=== PATIENT | male | born 1945 | race Caucasian/White ===

== ENCOUNTER 2019-03-12 17:11 | Inpatient (IN) ==
[2019-03-12] MEDS ORDERED: NON-FORMULARY MEDICATION 1 EACH EACH (Promethazine/Dextromethorphan [Promethazine-Dm Syrup PO PRN (17:41)
[2019-03-12] MEDS ORDERED: Nitroglycerin 0.4 MG TAB.SUBL SL PRN (17:41)
[2019-03-12] MEDS ORDERED: Baclofen 10 MG TABLET PO PRN (17:41)
[2019-03-12] MEDS: Gabapentin 100 MG CAPSULE PO SCH (19:06)
[2019-03-12] MEDS: Ascorbic Acid 500 MG TABLET PO SCH (19:06)
[2019-03-12] MEDS: Lactulose Oral Soln 20 GM/30 ML UDC PO SCH (20:51)
[2019-03-12] MEDS: Apixaban 5 MG TABLET PO SCH (20:52)
[2019-03-12] MEDS: ALPRAZolam 0.5 MG TABLET PO SCH (20:53)
[2019-03-12] MEDS: *HR* GlipiZIDE 5 MG TABLET PO SCH (20:53)
[2019-03-12] MEDS ORDERED: Insulin DETEMIR 100 UNIT/ML per UNIT SQ ONE (21:00)
[2019-03-13 05:51] LABS: Basophils % 0.1 %; Eosinophils % 0.6 %; Hematocrit 37.1 % (37.5-50.1); Hemoglobin 12.8 g/dL (12.9-16.9); Immature Granulocytes % 0.4 % (0-4); Lymphocytes # 1.3 K/mcL (0.6-4.6); Lymphocytes % 18.3 %; Mean Corpuscular HGB Conc 34.5 g/dL (31.6-35.5); Mean Corpuscular Hemoglobin 32.8 pg (28.0-33.3); Mean Corpuscular Volume 95.1 fL (83.0-100.0); Mean Platelet Volume 10.5 fL (9.4-12.4); Monocytes # 0.4 K/mcL (0.0-1.3); Neutrophils # 5.4 K/mcL (1.6-8.9); Platelet Count 174 K/mcL (140-400); Red Cell Distribution Width 14.5 % (11.5-14.5); Segmented Neutrophils % 74.6 %
[2019-03-13 06:08] LABS: BUN/Creatinine Ratio 24 (6-26); Blood Urea Nitrogen 24 mg/dL (8-23); Calcium 9.3 mg/dL (8.6-10.3); Carbon Dioxide 25 mEq/L (23-29); Chloride 105 mEq/L (98-107); Glucose 149 mg/dL (70-105); Osmolality,Calculated 293 (280-300); Potassium 3.7 mEq/L (3.5-5.1); Sodium 138 mEq/L (136-145); eGFR For Non-African Americans > 60 (> 60)
[2019-03-13] MEDS: Ascorbic Acid 500 MG TABLET PO SCH ×2 (06:21→17:29)
[2019-03-13] MEDS ORDERED: NON-FORMULARY MEDICATION 1 EACH EACH (Omega-3/Dha/Epa/Fish Oil [Fish Oil 1,000 Mg Softgel] PO SCH (09:00)
[2019-03-13] MEDS: Apixaban 5 MG TABLET PO SCH ×2 (11:21→19:48)
[2019-03-13] MEDS: Multivit/Ca/Min/Fe/FA 1 TAB TABLET PO SCH (11:24)
[2019-03-13] MEDS: Isosorbide MONOnitrate (24 HR) 60 MG TAB.ER.24H PO SCH (11:25)
[2019-03-13] MEDS: *HR* GlipiZIDE 5 MG TABLET PO SCH ×2 (11:25→19:48)
[2019-03-13] MEDS: Metoprolol XL (24 HR) Succ 50 MG TAB.ER.24H PO SCH (11:25)
[2019-03-13] MEDS: Furosemide 40 MG TABLET PO SCH (11:26)
[2019-03-13] MEDS: Loratadine 10 MG TABLET PO SCH (11:26)
[2019-03-13] MEDS: Lactulose Oral Soln 20 GM/30 ML UDC PO SCH ×3 (11:32→19:46)
[2019-03-13] MEDS: Insulin DETEMIR 100 UNIT/ML X5UNITS SQ SCH ×2 (12:21→19:51)
[2019-03-13] MEDS: Gabapentin 100 MG CAPSULE PO SCH (17:29)
--- NOTE | 2019-03-13 18:39 | Internal Med History&Physical ---
Date of Encounter: 03/13/19 Time of Encounter: 18:10 Assessment and Plan (1) CVA (cerebral vascular accident) Current visit: No Status: Acute Left basal ganglia CVA. Continue Eliquis and Plavix. PT and OT evaluations with ongoing intervention will be done. Qualifiers: CVA mechanism: thrombosis Precerebral and cerebral artery: middle cerebral artery Laterality of affected vessel: left Qualified Code(s): I63.312 - Cerebral infarction due to thrombosis of left middle cerebral artery (2) Atrial fibrillation Current visit: No Status: Chronic Continue Eliquis. Qualifiers: Atrial fibrillation type: chronic Qualified Code(s): I48.2 - Chronic atrial fibrillation (3) Generalized weakness Current visit: No Status: Acute PT and OT evaluation will be done. (4) CHF (congestive heart failure) Current visit: No Status: Chronic Continue Lasix, Imdur, Toprol, and lisinopril. Qualifiers: Heart failure type: systolic Heart failure chronicity: chronic Qualified Code(s): I50.22 - Chronic systolic (congestive) heart failure (5) Elevated LFTs Current visit: No Status: Acute LFTs elevated on all labs since December 2015. Hepatitis profile negative December 2018. (6) Hypothyroidism Current visit: No Status: Chronic TSH was normal at 0.873 on 01/31/2019. Continue present dose Synthroid. Qualifiers: Hypothyroidism type: acquired Qualified Code(s): E03.9 - Hypothyroidism, unspecified (7) Hypokalemia Current visit: No Status: Acute Likely secondary to Lasix use. Continue supplemental potassium. (8) CAD (coronary artery disease) Current visit: No Status: Chronic Status post CABG. Continue Plavix, Imdur, Toprol, and Eliquis. Qualifiers: Coronary Disease-Associated Artery/Lesion type: bypass graft [place] vs. transplanted heart: [place] heart Associated angina: without angina Qualified Code(s): I25.810 - Atherosclerosis of coronary artery bypass graft(s) without angina pectoris (9) Type 2 diabetes mellitus Current visit: No Status: Chronic Hemoglobin A1c was 8.0% on 03/10/2019. Continue glipizide and Accu-Cheks with SSI. Qualifiers: Diabetes mellitus lobsterman insulin use: with assisted use Diabetes mellitus complication status: without complication Qualified Code(s): E11.9 - Type 2 diabetes mellitus without complications; Z79.4 - medical terminologist (current) use of insulin (10) Anemia Current visit: No Status: Chronic Anemia testing 01/31/2019 showed iron 69, transferrin saturation 21%, transferrin 232, ferritin 208, B12 > 1500, and folate 20.5. Qualifiers: Anemia type: unspecified type Qualified Code(s): D64.9 - Anemia, unspecified Internal Medicine - H&P: HPI Chief complaint: CVA Admitted From: Hospital to Hospital Transfer Plans for Post Hospital Care: Home History of present illness: Mr. Willett is a 73 year old male was hospitalized at [facility] March 09- after presenting with stroke symptoms. Brain MRI showed small acute infarcts in the posterior limb of the left internal capsule. Aspirin was discontinued and he started Plavix. Eliquis dose was adjusted to 2.5 mg twice a day from his previous dose of 5 mg every morning. He was discharged to [facility] swing bed for ongoing rehabilitation therapy. He reports a previous stroke occurred approximately 5 months earlier without permanent neurologic deficit. He denies seizures. Past Med Surg Social Fam HX - Past Medical History Medical history: aortic aneurysm, arthritis, atrial fibrillation, cardiomy opathy, CHF, coronary artery disease, DVT, diabetes, GERD, hyperlipidemia, hypertension, myocardial infarction, peripheral artery disease, thyroid disease, other Additional medical history: SLEEP APNEA, ANXIETY, HYPOTHRYROID,RESTLESS LEG, PVD Psychiatric history: anxiety, depression - Past Surgical History Surgical History: angioplasty/stent, appendectomy, cholecystectomy, coronary bypass (CABG), LE Bypass, LE stent(s), LE vascular intervention, other Additional surgical history: heart stent x 3, holter monitor. - Social History Smoking Status: Former smoker Smokeless Tobacco Status: No Alcohol use: none Drug use: none - Family History Mother Living Status: Hx Family Cardiac Disorders: No Hx Family Respiratory Disorders: No Hx Family Cancer: No Father Living Status: Hx Family Cardiac Disorders: Yes Hx Family Cancer: No Hx Family GI Disorders: No Hx Family Endocrine Disorder: Yes Internal Medicine - H&P: Meds Ascorbate Calcium [Vitamin C] 500 mg PO BID #0 01/10/16 [History] Docusate [Colace] 100 mg PO DAILY PRN #0 01/10/16 [History] Doxepin HCl 100 mg PO HS #0 01/10/16 [History] Multivit-Min/FA/Lycopen/Lutein [Adults 50+ Multivitamin Tablet] 1 tab PO DAILY #0 01/10/16 [History] Potassium Chloride [K-Tab ER] 10 meq PO DAILY #0 01/10/16 [History] Nitroglycerin [Nitrostat] 0.4 mg SL Q5M PRN 05/16/16 [History] Apixaban [Eliquis] 2.5 mg PO BID #90 tablet 05/19/16 [Rx] Loratadine [Allergy Relief] 10 mg PO DAILY 08/03/17 [History] [place]-3/Dha/Epa/Fish Oil [Fish Oil 1,000 mg Softgel] 1,000 mg PO DAILY 08/03/17 [History] Ferrous Sulfate [Iron] 325 mg PO BID 02/06/18 [History] Levothyroxine Sodium 150 mcg PO QAM 10/19/18 [History] Rosuvastatin Calcium [Crestor] 20 mg PO QPM 10/19/18 [History] Baclofen [Lioresal] 10 mg PO TID PRN 01/15/19 [History] Metoprolol Succinate [Toprol Xl] 50 mg PO DAILY 01/15/19 [History] Pantoprazole Sodium 40 mg PO BID 01/15/19 [History] Isosorbide MONOnitrate [Isosorbide Mononitrate ER] 120 mg PO DAILY 02/02/19 [History] Lactulose 15 ml PO TID 02/02/19 [History] glipiZIDE [Glipizide] 5 mg PO BID #0 02/07/19 [Rx] Furosemide [Lasix] 40 mg PO DAILY 03/09/19 [History] Gabapentin [Neurontin] 100 mg PO DAILY@18 03/09/19 [History] Insulin Glargine [Lantus] 25 unit SQ HS 03/09/19 [History] Insulin Glargine [Lantus] 66 unit SQ QAM 03/09/19 [History] Promethazine/Dextromethorphan [Promethazine-Dm Syrup] 10 ml PO Q6H PRN 03/09/19 [History] ALPRAZolam [Xanax 0.5 MG Tablet] 1 mg PO HS 3 Days #3 tablet 03/12/19 [Rx] Clopidogrel [Plavix] 75 mg PO DAILY #30 tablet 03/12/19 [Rx] Ramipril [Altace] 5 mg PO DAILY #1 capsule 03/12/19 [Rx] Allergy/AdvReac Type Severity Reaction Status Date / Time tamsulosin Allergy Rash Verified 12/06/18 14:24 Penicillins AdvReac Mild Anaphylaxis Verified 12/06/18 14:24 All Systems PM: A 10-system review of systems was performed and is negative for pertinent findings except as documented above in the HPI. Review of systems: Gen.: He states his weight has decreased 10-15 pounds in the past year. Cardiovascular: He has history of hypertension. He reports atrial fibrillation has been present since approximately 2010. He has a diagnosis of heart failure. Echocardiogram 03/10/2019 showed LVEF of 30-35%. The interventricular septum and posterior wall thickness measurements were 1.34 and 1.22 cm respectively. There was LAE at 4.80 cm. Diastolic function assessment was limited because of underlying atrial fibrillation. A previous echocardiogram 01/14/2019 showed LVEF of 40-45% with mild tricuspid regurgitation and mild to moderate mitral regurgitation. He has known ASHD status post [place] 3 and 5 (? 3) vessel CABG 2009. Heart catheter 12/22/2016 showed LMCA free of disease, 100% stenosis in the proximal LAD, 50% stenosis in the mid circumflex, 100% stenosis of the proximal RCA and patent SVG to right PDA and DOS SANTOS to mid LAD. SVG to ramus was previously known to be occluded. He reports he has had [place] on Regadenoson EST 10/19/2018 showed LVEF 34% with perfusion imaging negative for ischemia and EKG nondiagnostic for scheming due to baseline ST/T changes. He reports a DVT approximately 2014. He has history of PAD status post leg arterial bypass. Respiratory: He smoked from age 17 until quitting approximately 5 months ago. He smoked 2 packs per day. He denies known chronic lung disease. He has TOMI and uses CPAP at bedtime. GI: He has history of cirrhosis likely secondary to alcohol abuse. He reports his last drink was November 2018. He has had cholecystectomy. He denies disorders of his exocrine pancreas : He has BPH but denies other kidney bladder prostate disorders Neurologic: As per history of present illness Endocrine: He was diagnosed with DM 2 approximately 2014. He has hypothyroidism and hyperlipidemia. Hematology/oncology: He has anemia but denies internal malignancies or other blood disorders Psychiatric: He has anxiety but denies depression or other mental health issues [place] skeletal: He has DJD and has had bilateral total knee replacements. He denies gout or other bone joint or muscle disorders. - Constitutional Vitals: Temp Pulse Resp BP Pulse Ox 97.6 F 89 18 132/66 97 03/13/19 07:33 03/13/19 07:33 03/13/19 07:33 03/13/19 07:33 03/13/19 07:33 Exam: Gen.: He is a well-developed well-nourished male lying comfortably in bed who appears in no acute distress HEENT: Head is atraumatic and normocephalic. Eyes: EOMI. There is no scleral icterus. Mouth: Mucosa is moist. Neck: Supple and nontender. There is no thyromegaly or adenopathy noted. Heart: Irregularly irregular without murmurs or gallops Lungs: No wheezes or crackles are heard. Abdomen: Soft and nontender. No masses or guarding are noted. Extremities: He has well-healed surgical scars over his anterior knees and left lower anteromedial calf. Dorsalis pedis and posterior tibial pulses are 1-2 over 2 bilaterally. Neurologic: Mental status: He is a reliable historian. He has dysarthria. Cranial nerves: He has slight right facial weakness involving his lower face and equivocal decrease on forehead movement. Tongue deviates to the right on protrusion. EOMI. Motor: The left arm and leg movement normally. The right arm is flaccid. He has decreased strength on left ankle flexion and extension strength against resistance. Cerebellar: Finger to nose is intact with the left hand Skin: Warm and dry Internal Med - H&P Results - Labs CBC & Chem 7: 03/13/19 05:23 03/13/19 05:23 Labs: Short CBC 03/13/19 Range/Units 05:23 WBC 7.2 (4.3-11.1) K/mcL Hgb 12.8 L (12.9-16.9) g/dL Hct 37.1 L (37.5-50.1) % Plt Count 174 (140-400) K/mcL Neutrophils # 5.4 (1.6-8.9) K/mcL BMP 03/13/19 05:23 Sodium 138 Potassium 3.7 Chloride 105 Carbon Dioxide 25 BUN 24 H Creatinine 1.01 Glucose 149 H Calcium 9.3
[2019-03-13] MEDS: ALPRAZolam 0.5 MG TABLET PO SCH (19:48)
[2019-03-14] MEDS: Ascorbic Acid 500 MG TABLET PO SCH ×2 (06:21→16:37)
[2019-03-14] MEDS: Lactulose Oral Soln 20 GM/30 ML UDC PO SCH ×3 (09:58→20:48)
[2019-03-14] MEDS: Multivit/Ca/Min/Fe/FA 1 TAB TABLET PO SCH (09:59)
[2019-03-14] MEDS: Loratadine 10 MG TABLET PO SCH (09:59)
[2019-03-14] MEDS: Furosemide 40 MG TABLET PO SCH (09:59)
[2019-03-14] MEDS: Apixaban 5 MG TABLET PO SCH ×2 (09:59→20:48)
[2019-03-14] MEDS: *HR* GlipiZIDE 5 MG TABLET PO SCH ×2 (09:59→20:48)
[2019-03-14] MEDS: Isosorbide MONOnitrate (24 HR) 60 MG TAB.ER.24H PO SCH (09:59)
[2019-03-14] MEDS: Metoprolol XL (24 HR) Succ 50 MG TAB.ER.24H PO SCH (09:59)
[2019-03-14] MEDS: Insulin DETEMIR 100 UNIT/ML X5UNITS SQ SCH ×2 (14:52→20:52)
--- NOTE | 2019-03-14 15:49 | Internal Med Progress Note ---
Date of Encounter: 03/14/19 Time of Encounter: 15:40 - Assessment and plan (1) CVA (cerebral vascular accident) Current Visit: No Status: Acute Assessment and plan: March 14. Left basal ganglia CVA. Continue Eliquis and Plavix with PT/OT. Qualifiers: CVA mechanism: thrombosis Precerebral and cerebral artery: middle cerebral artery Laterality of affected vessel: left Qualified Code(s): I63.312 - Cerebral infarction due to thrombosis of left middle cerebral artery (2) Atrial fibrillation Current Visit: No Status: Chronic Assessment and plan: March 14. Continue Eliquis Qualifiers: Atrial fibrillation type: chronic Qualified Code(s): I48.2 - Chronic atrial fibrillation (3) Generalized weakness Current Visit: No Status: Acute Assessment and plan: March 14. Continue PT and OT (4) CHF (congestive heart failure) Current Visit: No Status: Chronic Assessment and plan: March 14. Continue Lasix, Imdur, Toprol, and lisinopril Qualifiers: Heart failure type: systolic Heart failure chronicity: chronic Qualified Code(s): I50.22 - Chronic systolic (congestive) heart failure (5) Elevated LFTs Current Visit: No Status: Acute Assessment and plan: March 14. LFTs elevated on all labs since December 2015. Hepatitis profile negative December 2018. Continue to monitor. (6) Hypothyroidism Current Visit: No Status: Chronic Assessment and plan: March 14. TSH was normal at 0.873 on 01/31/2019. Continue present dose Synthroid. Qualifiers: Hypothyroidism type: acquired Qualified Code(s): E03.9 - Hypothyroidism, unspecified (7) Hypokalemia Current Visit: No Status: Acute Assessment and plan: March 14. Continue supplemental potassium and monitor labs. (8) CAD (coronary artery disease) Current Visit: No Status: Chronic Assessment and plan: March 14. Status post CABG. Continue Plavix, Imdur, Toprol, and Eliquis. Qualifiers: Coronary Disease-Associated Artery/Lesion type: bypass graft [place] vs. transplanted heart: [place] heart Associated angina: without angina Qualified Code(s): I25.810 - Atherosclerosis of coronary artery bypass graft(s) without angina pectoris (9) Type 2 diabetes mellitus Current Visit: No Status: Chronic Assessment and plan: March 14. Hemoglobin A1c was 8.0% on 03/10/2019. Continue glipizide and Accu- Cheks with SSI. Qualifiers: Diabetes mellitus long term care social worker insulin use: with long term care social worker use Diabetes mellitus complication status: without complication Qualified Code(s): E11.9 - Type 2 diabetes mellitus without complications; Z79.4 - detention (current) use of insulin (10) Anemia Current Visit: No Status: Chronic Assessment and plan: March 14. Anemia testing 01/31/2019 showed iron 69, transferrin saturation 21%, transferrin 232, ferritin 208, B12 > 1500, and folate 20.5. Qualifiers: Anemia type: unspecified type Qualified Code(s): D64.9 - Anemia, unspecifie d - Subjective Interval history: March 14. He has no new complaints. - Constitutional Vitals: Temp Pulse Resp BP Pulse Ox 97.4 F L 73 14 128/71 98 03/14/19 14:29 03/14/19 14:29 03/14/19 14:29 03/14/19 14:29 03/14/19 14:29 Exam: He sitting in a chair at bedside resting comfortably and appears in no acute distress. His affect is overall cheerful. I reviewed his medications and lab results. Internal Medicine: Result - Labs CBC & Chem 7: 03/13/19 05:23 03/13/19 05:23 Consult Discharge Plan - Plan Referrals: Neelam Araujo CNP [Primary Care Provider] - 1 week
[2019-03-14] MEDS: Gabapentin 100 MG CAPSULE PO SCH (16:37)
[2019-03-14] MEDS: ALPRAZolam 0.5 MG TABLET PO SCH (20:47)
[2019-03-15] MEDS: Ascorbic Acid 500 MG TABLET PO SCH ×2 (06:31→17:22)
[2019-03-15] MEDS: *HR* GlipiZIDE 5 MG TABLET PO SCH ×2 (09:08→22:01)
[2019-03-15] MEDS: Loratadine 10 MG TABLET PO SCH (09:08)
[2019-03-15] MEDS: Furosemide 40 MG TABLET PO SCH (09:08)
[2019-03-15] MEDS: Multivit/Ca/Min/Fe/FA 1 TAB TABLET PO SCH (09:08)
[2019-03-15] MEDS: Isosorbide MONOnitrate (24 HR) 60 MG TAB.ER.24H PO SCH (09:09)
[2019-03-15] MEDS: Lactulose Oral Soln 20 GM/30 ML UDC PO SCH ×3 (09:09→22:07)
[2019-03-15] MEDS: Metoprolol XL (24 HR) Succ 50 MG TAB.ER.24H PO SCH (09:09)
[2019-03-15] MEDS: Apixaban 5 MG TABLET PO SCH ×2 (09:09→22:01)
[2019-03-15] MEDS: Insulin DETEMIR 100 UNIT/ML X5UNITS SQ SCH ×2 (09:09→22:09)
[2019-03-15] MEDS: MOM Conc 10 ML UD.LIQ PO SCH (14:30)
[2019-03-15] MEDS: Gabapentin 100 MG CAPSULE PO SCH (17:22)
[2019-03-15] MEDS: ALPRAZolam 0.5 MG TABLET PO SCH (22:01)
[2019-03-16] MEDS: Ascorbic Acid 500 MG TABLET PO SCH ×2 (06:07→16:27)
[2019-03-16] MEDS: Metoprolol XL (24 HR) Succ 50 MG TAB.ER.24H PO SCH (08:38)
[2019-03-16] MEDS: Loratadine 10 MG TABLET PO SCH (08:38)
[2019-03-16] MEDS: Furosemide 40 MG TABLET PO SCH (08:38)
[2019-03-16] MEDS: Apixaban 5 MG TABLET PO SCH ×2 (08:38→20:43)
[2019-03-16] MEDS: Multivit/Ca/Min/Fe/FA 1 TAB TABLET PO SCH (08:40)
[2019-03-16] MEDS: Isosorbide MONOnitrate (24 HR) 60 MG TAB.ER.24H PO SCH (08:41)
[2019-03-16] MEDS: *HR* GlipiZIDE 5 MG TABLET PO SCH ×2 (08:41→20:43)
[2019-03-16] MEDS: Lactulose Oral Soln 20 GM/30 ML UDC PO SCH ×3 (08:43→20:43)
[2019-03-16] MEDS: Insulin DETEMIR 100 UNIT/ML X5UNITS SQ SCH ×2 (09:53→20:55)
[2019-03-16] MEDS: Gabapentin 100 MG CAPSULE PO SCH ×3 (11:31→20:44)
[2019-03-16] MEDS: ALPRAZolam 0.5 MG TABLET PO SCH (20:43)
[2019-03-16] MEDS ORDERED: Insulin DETEMIR 100 UNIT/ML per UNIT SQ ONE (21:02)
[2019-03-17] MEDS: Ascorbic Acid 500 MG TABLET PO SCH ×2 (06:31→17:45)
[2019-03-17] MEDS: *HR* GlipiZIDE 5 MG TABLET PO SCH ×2 (09:26→20:18)
[2019-03-17] MEDS: Lactulose Oral Soln 20 GM/30 ML UDC PO SCH ×3 (09:26→20:16)
[2019-03-17] MEDS: Isosorbide MONOnitrate (24 HR) 60 MG TAB.ER.24H PO SCH (09:26)
[2019-03-17] MEDS: Apixaban 5 MG TABLET PO SCH ×2 (09:26→20:16)
[2019-03-17] MEDS: Multivit/Ca/Min/Fe/FA 1 TAB TABLET PO SCH (09:27)
[2019-03-17] MEDS: Gabapentin 100 MG CAPSULE PO SCH ×3 (09:27→20:17)
[2019-03-17] MEDS: Metoprolol XL (24 HR) Succ 50 MG TAB.ER.24H PO SCH (09:27)
[2019-03-17] MEDS: Furosemide 40 MG TABLET PO SCH (09:27)
[2019-03-17] MEDS: Loratadine 10 MG TABLET PO SCH (09:28)
[2019-03-17] MEDS: Acetaminophen 325 MG TABLET PO PRN (13:28)
[2019-03-17] MEDS: MOM Conc 10 ML UD.LIQ PO SCH (14:19)
--- NOTE | 2019-03-17 15:50 | Internal Med Progress Note ---
Date of Encounter: 03/17/19 Time of Encounter: 15:40 - Assessment and plan (1) CVA (cerebral vascular accident) Current Visit: No Status: Acute Assessment and plan: March 14. Left basal ganglia CVA. Continue Eliquis and Plavix with PT/OT. Qualifiers: CVA mechanism: thrombosis Precerebral and cerebral artery: middle cerebral artery Laterality of affected vessel: left Qualified Code(s): I63.312 - Cerebral infarction due to thrombosis of left middle cerebral artery (2) Atrial fibrillation Current Visit: No Status: Chronic Assessment and plan: March 14. Continue Eliquis Qualifiers: Atrial fibrillation type: chronic Qualified Code(s): I48.2 - Chronic atrial fibrillation (3) Generalized weakness Current Visit: No Status: Acute Assessment and plan: March 14. Continue PT and OT (4) CHF (congestive heart failure) Current Visit: No Status: Chronic Assessment and plan: March 14. Continue Lasix, Imdur, Toprol, and lisinopril Qualifiers: Heart failure type: systolic Heart failure chronicity: chronic Qualified Code(s): I50.22 - Chronic systolic (congestive) heart failure (5) Elevated LFTs Current Visit: No Status: Acute Assessment and plan: March 14. LFTs elevated on all labs since December 2015. Hepatitis profile negative December 2018. Continue to monitor. (6) Hypothyroidism Current Visit: No Status: Chronic Assessment and plan: March 14. TSH was normal at 0.873 on 01/31/2019. Continue present dose Synthroid. Qualifiers: Hypothyroidism type: acquired Qualified Code(s): E03.9 - Hypothyroidism, unspecified (7) Hypokalemia Current Visit: No Status: Acute Assessment and plan: March 14. Continue supplemental potassium and monitor labs. March 17. Recheck labs in a.m. (8) CAD (coronary artery disease) Current Visit: No Status: Chronic Assessment and plan: March 14. Status post CABG. Continue Plavix, Imdur, Toprol, and Eliquis. Qualifiers: Coronary Disease-Associated Artery/Lesion type: bypass graft [place] vs. transplanted heart: [place] heart Associated angina: without angina Qualified Code(s): I25.810 - Atherosclerosis of coronary artery bypass graft(s) without angina pectoris (9) Type 2 diabetes mellitus Current Visit: No Status: Chronic Assessment and plan: Jemma 18. Hemoglobin A1c was 8.0% on 03/10/2019. Continue glipizide and Accu- Cheks with SSI. Qualifiers: Diabetes mellitus terminal clerk insulin use: with longterm use Diabetes mellitus complication status: without complication Qualified Code(s): E11.9 - Type 2 diabetes mellitus without complications; Z79.4 - FDC (current) use of insulin (10) Anemia Current Visit: No Status: Chronic Assessment and plan: March 14. Anemia testing 01/31/2019 showed iron 69, transferrin saturation 21%, transferrin 232, ferritin 208, B12 > 1500, and folate 20.5. March 17. Recheck labs in a.m. Qualifiers: Anemia type: unspecified type Qualified Code(s): D64.9 - Anemia, unspecified (11) Constipation Current Visit: Yes Status: Acute Assessment and plan: March 17. Start daily MiraLAX Qualifiers: Constipation type: unspecified constipation type Qualified Code(s): K59.00 - Constipation, unspecified - Subjective Interval history: March 14. He has no new complaints. March 17. He has no new complaints except constipation. - Constitutional Vitals: Temp Pulse Resp BP Pulse Ox 98.3 F 88 18 138/81 95 03/17/19 07:28 03/17/19 07:28 03/17/19 07:28 03/17/19 07:28 03/17/19 07:28 Exam: He is resting comfortably in bed and appears in no acute distress. His speech has unchanged dysarthria. Right arm is still flaccid. Right leg shows active internal and external rotation capabilities but he does not lift it off the bed. Alexis catheter is in place draining urine. I reviewed his medications and lab results. Internal Medicine: Result - Labs CBC & Chem 7: 03/13/19 05:23 03/13/19 05:23 Consult Discharge Plan - Plan Referrals: Neelam Araujo CNP [Primary Care Provider] - 1 week
[2019-03-17] MEDS: ALPRAZolam 0.5 MG TABLET PO SCH (20:17)
[2019-03-17] MEDS: Insulin DETEMIR 100 UNIT/ML X5UNITS SQ SCH (20:28)
[2019-03-18 05:16] LABS: Basophils % 0.3 %; Eosinophils # 0.3 K/mcL (0.0-0.6); Hematocrit 38.3 % (37.5-50.1); Hemoglobin 13.2 g/dL (12.9-16.9); Immature Granulocytes % 0.4 % (0-4); Lymphocytes # 1.9 K/mcL (0.6-4.6); Mean Corpuscular HGB Conc 34.5 g/dL (31.6-35.5); Mean Corpuscular Volume 95.8 fL (83.0-100.0); Mean Platelet Volume 10.5 fL (9.4-12.4); Monocytes # 0.6 K/mcL (0.0-1.3); Neutrophils # 3.9 K/mcL (1.6-8.9); Platelet Count 157 K/mcL (140-400); Red Cell Distribution Width 14.6 % (11.5-14.5); Segmented Neutrophils % 58.3 %
[2019-03-18 05:49] LABS: Alanine Aminotransferase 55 Units/L (7-52); Albumin 3.4 g/dL (3.5-5.7); Albumin/Globulin Ratio 1.1 (1.1-2.2); Alkaline Phosphatase 129 Units/L (34-104); Aspartate Amino Transferase 30 Units/L (13-39); BUN/Creatinine Ratio 16 (6-26); Bilirubin,Total 2.8 mg/dL (0.3-1.0); Blood Urea Nitrogen 18 mg/dL (8-23); Carbon Dioxide 28 mEq/L (23-29); Chloride 103 mEq/L (98-107); Glucose 161 mg/dL (70-105); Osmolality,Calculated 289 (280-300); Potassium 4.1 mEq/L (3.5-5.1); Sodium 137 mEq/L (136-145); Total Protein 6.4 g/dL (6.4-8.9); eGFR For Non-African Americans > 60 (> 60)
[2019-03-18] MEDS: Ascorbic Acid 500 MG TABLET PO SCH ×2 (06:31→17:21)
[2019-03-18] MEDS: Lactulose Oral Soln 20 GM/30 ML UDC PO SCH ×3 (08:12→21:17)
[2019-03-18] MEDS: Isosorbide MONOnitrate (24 HR) 60 MG TAB.ER.24H PO SCH (08:12)
[2019-03-18] MEDS: Metoprolol XL (24 HR) Succ 50 MG TAB.ER.24H PO SCH (08:13)
[2019-03-18] MEDS: *HR* GlipiZIDE 5 MG TABLET PO SCH ×2 (08:13→21:16)
[2019-03-18] MEDS: Furosemide 40 MG TABLET PO SCH (08:13)
[2019-03-18] MEDS: Loratadine 10 MG TABLET PO SCH (08:13)
[2019-03-18] MEDS: Finasteride 5 MG TABLET PO SCH (08:13)
[2019-03-18] MEDS: Apixaban 5 MG TABLET PO SCH ×2 (08:14→21:16)
[2019-03-18] MEDS: Gabapentin 100 MG CAPSULE PO SCH ×3 (08:14→21:16)
[2019-03-18] MEDS: Multivit/Ca/Min/Fe/FA 1 TAB TABLET PO SCH (08:14)
[2019-03-18] MEDS: Acetaminophen 325 MG TABLET PO PRN ×2 (09:34→16:18)
[2019-03-18] MEDS ORDERED: Methyl Salicylate/Menthol 28 GM TUBE TP PRN (17:41)
[2019-03-18] MEDS: Insulin DETEMIR 100 UNIT/ML X5UNITS SQ SCH (21:16)
[2019-03-18] MEDS: ALPRAZolam 0.5 MG TABLET PO SCH (21:16)
[2019-03-18] MEDS: Methyl Salicylate/Menthol 28 GM TUBE TP SCH (21:17)
[2019-03-19] MEDS: Ascorbic Acid 500 MG TABLET PO SCH ×2 (05:55→17:59)
[2019-03-19] MEDS: Multivit/Ca/Min/Fe/FA 1 TAB TABLET PO SCH (08:55)
[2019-03-19] MEDS: Apixaban 5 MG TABLET PO SCH ×2 (08:55→21:03)
[2019-03-19] MEDS: Loratadine 10 MG TABLET PO SCH (08:56)
[2019-03-19] MEDS: Gabapentin 100 MG CAPSULE PO SCH ×3 (08:56→21:03)
[2019-03-19] MEDS: Furosemide 40 MG TABLET PO SCH (08:56)
[2019-03-19] MEDS: Isosorbide MONOnitrate (24 HR) 60 MG TAB.ER.24H PO SCH (08:56)
[2019-03-19] MEDS: Finasteride 5 MG TABLET PO SCH (08:56)
[2019-03-19] MEDS: *HR* GlipiZIDE 5 MG TABLET PO SCH ×2 (08:56→21:04)
[2019-03-19] MEDS: Lactulose Oral Soln 20 GM/30 ML UDC PO SCH ×3 (08:56→21:04)
[2019-03-19] MEDS: Metoprolol XL (24 HR) Succ 50 MG TAB.ER.24H PO SCH (08:56)
[2019-03-19] MEDS: Methyl Salicylate/Menthol 28 GM TUBE TP SCH ×2 (08:57→21:04)
[2019-03-19] MEDS: Acetaminophen 325 MG TABLET PO PRN (15:29)
[2019-03-19] MEDS: MOM Conc 10 ML UD.LIQ PO SCH (15:30)
--- NOTE | 2019-03-19 15:32 | Internal Med Progress Note ---
Date of Encounter: 03/19/19 Time of Encounter: 15:25 - Assessment and plan (1) CVA (cerebral vascular accident) Current Visit: No Status: Acute Assessment and plan: March 14. Left basal ganglia CVA. Continue Eliquis and Plavix with PT/OT. Qualifiers: CVA mechanism: thrombosis Precerebral and cerebral artery: middle cerebral artery Laterality of affected vessel: left Qualified Code(s): I63.312 - Cerebral infarction due to thrombosis of left middle cerebral artery (2) Atrial fibrillation Current Visit: No Status: Chronic Assessment and plan: March 14. Continue Eliquis Qualifiers: Atrial fibrillation type: chronic Qualified Code(s): I48.2 - Chronic atrial fibrillation (3) Generalized weakness Current Visit: No Status: Acute Assessment and plan: March 14. Continue PT and OT (4) CHF (congestive heart failure) Current Visit: No Status: Chronic Assessment and plan: March 14. Continue Lasix, Imdur, Toprol, and lisinopril Qualifiers: Heart failure type: systolic Heart failure chronicity: chronic Qualified Code(s): I50.22 - Chronic systolic (congestive) heart failure (5) Elevated LFTs Current Visit: No Status: Acute Assessment and plan: March 14. LFTs elevated on all labs since December 2015. Hepatitis profile negative December 2018. Continue to monitor. (6) Hypothyroidism Current Visit: No Status: Chronic Assessment and plan: March 14. TSH was normal at 0.873 on 01/31/2019. Continue present dose Synthroid. Qualifiers: Hypothyroidism type: acquired Qualified Code(s): E03.9 - Hypothyroidism, unspecified (7) Hypokalemia Current Visit: No Status: Acute Assessment and plan: March 14. Continue supplemental potassium and monitor labs. March 17. Recheck labs in a.m. March 19. Potassium level normal at 4.1. Continue supplemental potassium. (8) CAD (coronary artery disease) Current Visit: No Status: Chronic Assessment and plan: March 14. Status post CABG. Continue Plavix, Imdur, Toprol, and Eliquis. Qualifiers: Coronary Disease-Associated Artery/Lesion type: bypass graft [place] vs. transplanted heart: [place] heart Associated angina: without angina Qualified Code(s): I25.810 - Atherosclerosis of coronary artery bypass graft(s) without angina pectoris (9) Type 2 diabetes mellitus Current Visit: No Status: Chronic Assessment and plan: March 14. Hemoglobin A1c was 8.0% on 03/10/2019. Continue glipizide and Accu- Cheks with SSI. Qualifiers: Diabetes mellitus long chain beamer insulin use: with senior care use Diabetes mellitus complication status: without complication Qualified Code(s): E11.9 - Type 2 diabetes mellitus without complications; Z79.4 - buttermaker helper (current) use of insulin (10) Anemia Current Visit: No Status: Chronic Assessment and plan: March 14. Anemia testing 01/31/2019 showed iron 69, transferrin saturation 21%, transferrin 232, ferritin 208, B12 > 1500, and folate 20.5. March 17. Recheck labs in a.m. March 19. Hemoglobin normal at 13.2. Continue ferrous sulfate with ascorbic acid. Qualifiers: Anemia type: unspecified type Qualified Code(s): D64.9 - Anemia, unspecified (11) Constipation Current Visit: Yes Status: Acute Assessment and plan: March 17. Start daily MiraLAX Qualifiers: Constipation type: unspecified constipation type Qualified Code(s): K59.00 - Constipation, unspecified (12) Facial dermatitis Current Visit: Yes Status: Acute Assessment and plan: March 19. Lotrisone cream will be ordered. - Subjective Interval history: March 14. He has no new complaints. March 17. He has no new complaints except constipation. March 19. He has no new complaints. - Constitutional Vitals: Temp Pulse Resp BP Pulse Ox 97.7 F 81 20 130/65 96 03/19/19 06:57 03/19/19 06:57 03/19/19 06:57 03/19/19 06:57 03/19/19 12:41 Exam: He sitting in a chair at bedside resting comfortably. His affect is bright and cheerful. He has seborrheic dermatitis of his forehead and bilateral malar area. I reviewed his medications and lab results. Internal Medicine: Result - Labs CBC & Chem 7: 03/18/19 04:53 03/18/19 04:53 Consult Discharge Plan - Plan Referrals: Neelam Araujo, SUBEDITOR [Primary Care Provider] - 1 week
[2019-03-19] MEDS: Insulin DETEMIR 100 UNIT/ML X5UNITS SQ SCH (21:04)
[2019-03-19] MEDS: ALPRAZolam 0.5 MG TABLET PO SCH (21:04)
[2019-03-19] MEDS: Clotrimazole/Betameth Dip CRM 45 APPL/45 GM TUBE TP SCH (21:04)
[2019-03-20] MEDS: Ascorbic Acid 500 MG TABLET PO SCH ×2 (06:10→16:39)
[2019-03-20] MEDS: Lactulose Oral Soln 20 GM/30 ML UDC PO SCH ×3 (09:36→19:59)
[2019-03-20] MEDS: Apixaban 5 MG TABLET PO SCH ×2 (09:37→19:58)
[2019-03-20] MEDS: Isosorbide MONOnitrate (24 HR) 60 MG TAB.ER.24H PO SCH (09:37)
[2019-03-20] MEDS: Finasteride 5 MG TABLET PO SCH (09:37)
[2019-03-20] MEDS: Loratadine 10 MG TABLET PO SCH (09:37)
[2019-03-20] MEDS: Furosemide 40 MG TABLET PO SCH (09:38)
[2019-03-20] MEDS: *HR* GlipiZIDE 5 MG TABLET PO SCH ×2 (09:38→19:58)
[2019-03-20] MEDS: Metoprolol XL (24 HR) Succ 50 MG TAB.ER.24H PO SCH (09:38)
[2019-03-20] MEDS: Multivit/Ca/Min/Fe/FA 1 TAB TABLET PO SCH (09:38)
[2019-03-20] MEDS: Gabapentin 100 MG CAPSULE PO SCH ×3 (09:38→19:58)
[2019-03-20] MEDS: Clotrimazole/Betameth Dip CRM 45 APPL/45 GM TUBE TP SCH ×2 (10:01→19:59)
[2019-03-20] MEDS: Methyl Salicylate/Menthol 28 GM TUBE TP SCH ×2 (10:02→19:59)
[2019-03-20] MEDS ORDERED: Simethicone 80 MG TAB.CHEW PO PRN (15:53)
[2019-03-20] MEDS: Insulin DETEMIR 100 UNIT/ML X5UNITS SQ SCH (19:59)
[2019-03-20] MEDS: ALPRAZolam 0.5 MG TABLET PO SCH (19:59)
[2019-03-21] MEDS: Ascorbic Acid 500 MG TABLET PO SCH (06:12)
[2019-03-21 07:01] VITALS: BP 100/63
[2019-03-21] MEDS: *HR* GlipiZIDE 5 MG TABLET PO SCH (08:22)
[2019-03-21] MEDS: Multivit/Ca/Min/Fe/FA 1 TAB TABLET PO SCH (08:22)
[2019-03-21] MEDS: Apixaban 5 MG TABLET PO SCH (08:22)
[2019-03-21] MEDS: Isosorbide MONOnitrate (24 HR) 60 MG TAB.ER.24H PO SCH (08:22)
[2019-03-21] MEDS: Loratadine 10 MG TABLET PO SCH (08:22)
[2019-03-21] MEDS: Finasteride 5 MG TABLET PO SCH (08:22)
[2019-03-21] MEDS: Metoprolol XL (24 HR) Succ 50 MG TAB.ER.24H PO SCH (08:23)
[2019-03-21] MEDS: Gabapentin 100 MG CAPSULE PO SCH (08:23)
[2019-03-21] MEDS: Furosemide 40 MG TABLET PO SCH (08:23)
[2019-03-21] MEDS: Clotrimazole/Betameth Dip CRM 45 APPL/45 GM TUBE TP SCH (08:34)
[2019-03-21] MEDS: Lactulose Oral Soln 20 GM/30 ML UDC PO SCH (08:35)
[2019-03-21] MEDS: Methyl Salicylate/Menthol 28 GM TUBE TP SCH (08:36)
--- NOTE | 2019-03-21 10:24 | Discharge Summary ---
Date of Encounter: 03/21/19 Time of Encounter: 10:14 - Discharge Diagnosis (1) CVA (cerebral vascular accident) Priority: Primary Status: Acute Qualifiers: CVA mechanism: thrombosis Precerebral and cerebral artery: middle cerebral artery Laterality of affected vessel: left Qualified Code(s): I63.312 - Cerebral infarction due to thrombosis of left middle cerebral artery (2) Atrial fibrillation Priority: Secondary Status: Chronic Qualifiers: Atrial fibrillation type: chronic Qualified Code(s): I48.2 - Chronic atrial fibrillation (3) Generalized weakness Priority: Secondary Status: Acute (4) CHF (congestive heart failure) Priority: Secondary Status: Chronic Qualifiers: Heart failure type: systolic Heart failure chronicity: chronic Qualified Code(s): I50.22 - Chronic systolic (congestive) heart failure (5) Elevated LFTs Priority: Secondary Status: Acute (6) Hypothyroidism Priority: Secondary Status: Chronic Qualifiers: Hypothyroidism type: acquired Qualified Code(s): E03.9 - Hypothyroidism, unspecified (7) Hypokalemia Priority: Secondary Status: Acute (8) CAD (coronary artery disease) Priority: Secondary Status: Chronic Qualifiers: Coronary Disease-Associated Artery/Lesion type: bypass graft [place] vs. transplanted heart: [place] heart Associated angina: without angina Qualified Code(s): I25.810 - Atherosclerosis of coronary artery bypass graft(s) without angina pectoris (9) Type 2 diabetes mellitus Priority: Secondary Status: Chronic Qualifiers: Diabetes mellitus care home insulin use: with care home use Diabetes mellitus complication status: without complication Qualified Code(s): E11.9 - Type 2 diabetes mellitus without complications; Z79.4 - FPC (current) use of insulin (10) Anemia Priority: Secondary Status: Chronic Qualifiers: Anemia type: unspecified type Qualified Code(s): D64.9 - Anemia, unspecified (11) Constipation Priority: Secondary Status: Acute Qualifiers: Constipation type: unspecified constipation type Qualified Code(s): K59.00 - Constipation, unspecified (12) Facial dermatitis Priority: Secondary Status: Acute Hospital course: Mr. Willett is a 73 year old male who was hospitalized at [facility] March 09 after presenting with stroke symptoms. Brain MRI showed small acute infarcts in the posterior limb of the left internal capsule. Aspirin was discontinued and he started Plavix. Eliquis dose was adjusted to 2.5 mg twice a day from his previous dose of 5 mg every morning. He was discharged to [facility] swing bed for ongoing rehabilitation therapy. He had physical therapy and occupational therapy evaluations with ongoing intervention. Eliquis and Plavix were continued. He made slow but steady progress. His requested he be transferred to [place] [facility] [place] for ongoing therapy needs. Arrangements were complete on March 21 for discharge to [place]. He will follow with his PCP within 1 week. - Time Spent with Patient Total time spent providing and/or coordinating discharge services: - Discharge Medications Prescriptions: Continue Docusate [Colace] 100 mg PO DAILY PRN #0 PRN Reason: Constipation Potassium Chloride [K-Tab ER] 10 meq PO DAILY #0 Ascorbate Calcium [Vitamin C] 500 mg PO BID #0 Doxepin HCl 100 mg PO HS #0 Multivit-Min/FA/Lycopen/Lutein [Adults 50+ Multivitamin Tablet] 1 tab PO DAILY #0 Nitroglycerin [Nitrostat] 0.4 mg SL Q5M PRN PRN Reason: Chest Pain Apixaban [Eliquis] 2.5 mg PO BID #90 tablet [place]-3/Dha/Epa/Fish Oil [Fish Oil 1,000 mg Softgel] 1,000 mg PO DAILY Loratadine [Allergy Relief] 10 mg PO DAILY Ferrous Sulfate [Iron] 325 mg PO BID Levothyroxine Sodium 150 mcg PO QAM Rosuvastatin Calcium [Crestor] 20 mg PO QPM Metoprolol Succinate [Toprol Xl] 50 mg PO DAILY Baclofen [Lioresal] 10 mg PO TID PRN PRN Reason: Muscle Spasm Pantoprazole Sodium 40 mg PO BID Isosorbide MONOnitrate [Isosorbide Mononitrate ER] 120 mg PO DAILY Lactulose 15 ml PO TID glipiZIDE [Glipizide] 5 mg PO BID #0 Furosemide [Lasix] 40 mg PO DAILY Gabapentin [Neurontin] 100 mg PO DAILY@18 Insulin Glargine [Lantus] 66 unit SQ QAM Insulin Glargine [Lantus] 25 unit SQ HS Promethazine/Dextromethorphan [Promethazine-Dm Syrup] 10 ml PO Q6H PRN PRN Reason: Cough Clopidogrel [Plavix] 75 mg PO DAILY #30 tablet Ramipril [Altace] 5 mg PO DAILY #1 capsule Home Medications: Ascorbate Calcium [Vitamin C] 500 mg PO BID #0 01/10/16 [History] Docusate [Colace] 100 mg PO DAILY PRN #0 01/10/16 [History] Doxepin HCl 100 mg PO HS #0 01/10/16 [History] Multivit-Min/FA/Lycopen/Lutein [Adults 50+ Multivitamin Tablet] 1 tab PO DAILY #0 01/10/16 [History] Potassium Chloride [K-Tab ER] 10 meq PO DAILY #0 01/10/16 [History] Nitroglycerin [Nitrostat] 0.4 mg SL Q5M PRN 05/16/16 [History] Apixaban [Eliquis] 2.5 mg PO BID #90 tablet 05/19/16 [Rx] Loratadine [Allergy Relief] 10 mg PO DAILY 08/03/17 [History] [place]-3/Dha/Epa/Fish Oil [Fish Oil 1,000 mg Softgel] 1,000 mg PO DAILY 08/03/17 [History] Ferrous Sulfate [Iron] 325 mg PO BID 02/06/18 [History] Levothyroxine Sodium 150 mcg PO QAM 10/19/18 [History] Rosuvastatin Calcium [Crestor] 20 mg PO QPM 10/19/18 [History] Baclofen [Lioresal] 10 mg PO TID PRN 01/15/19 [History] Metoprolol Succinate [Toprol Xl] 50 mg PO DAILY 01/15/19 [History] Pantoprazole Sodium 40 mg PO BID 01/15/19 [History] Isosorbide MONOnitrate [Isosorbide Mononitrate ER] 120 mg PO DAILY 02/02/19 [History] Lactulose 15 ml PO TID 02/02/19 [History] glipiZIDE [Glipizide] 5 mg PO BID #0 02/07/19 [Rx] Furosemide [Lasix] 40 mg PO DAILY 03/09/19 [History] Gabapentin [Neurontin] 100 mg PO DAILY@18 03/09/19 [History] Insulin Glargine [Lantus] 25 unit SQ HS 03/09/19 [History] Insulin Glargine [Lantus] 66 unit SQ QAM 03/09/19 [History] Promethazine/Dextromethorphan [Promethazine-Dm Syrup] 10 ml PO Q6H PRN 03/09/19 [History] Clopidogrel [Plavix] 75 mg PO DAILY #30 tablet 03/12/19 [Rx] Ramipril [Altace] 5 mg PO DAILY #1 capsule 03/12/19 [Rx] Allergies/Adverse Reactions: Allergy/AdvReac Type Severity Reaction Status Date / Time tamsulosin Allergy Rash Verified 12/06/18 14:24 Penicillins AdvReac Mild Anaphylaxis Verified 12/06/18 14:24 Date of admission: 03/12/19 17:22 Primary care physician: Neelam Araujo CNP Consults: 03/12/19 17:35 Consult to Physical Therapy [CONS] Routine Comment: Evaluate, develop and implement POC Reason for Consult: weakness Does patient have active BEDREST order?: No Is patient medically & hemodynamically stable?: Yes Patient assessed for mobility or mobilized this visit?: No OT [Consult to Occupational Therapy] [CONS] Routine Comment: Evaluate, develop and implement POC Reason for Consult: weakness Does patient have active BEDREST order?: No Is patient medically & hemodynamically stable?: Yes Patient assessed for mobility or mobilized this visit?: No 03/12/19 17:36 Consult to Director Microbiology [CONS] Routine Reason for SW Consult: discharge planning 03/12/19 17:40 Consult to Speech Therapy [CONS] Routine Comment: Evaluate, develop and implement POC Reason for Consult: CVA/TIA Call Completed: No - Constitutional Vitals: Temp Pulse Resp BP Pulse Ox 97.3 F L 78 22 100/63 96 03/21/19 06:57 03/21/19 06:57 03/21/19 06:57 03/21/19 06:57 03/21/19 06:57 - Patient Status Disposition: Transfer Other - Discharge Instructions Follow Up With: Neelam Araujo CNP [Primary Care Provider] - 1 week - Diet and Activity Activity: as per physical therapy Diet: other (Advance soft diet with thin liquids. No straws)
--- NOTE | 2019-03-21 11:07 | Physician Discharge Referral ---
ExtendedCare Referral Info Transfer To: [place] Provider in Charge: Florentino Provider in Charge after Transfer: PCP - Diagnosis (1) CVA (cerebral vascular accident) Priority: Primary Status: Acute (2) Atrial fibrillation Priority: Secondary Status: Chronic (3) Generalized weakness Priority: Secondary Status: Acute (4) CHF (congestive heart failure) Priority: Secondary Status: Chronic (5) Elevated LFTs Priority: Secondary Status: Acute (6) Hypothyroidism Priority: Secondary Status: Chronic (7) Hypokalemia Priority: Secondary Status: Acute (8) CAD (coronary artery disease) Priority: Secondary Status: Chronic (9) Type 2 diabetes mellitus Priority: Secondary Status: Chronic (10) Anemia Priority: Secondary Status: Chronic (11) Constipation Priority: Secondary Status: Acute (12) Facial dermatitis Priority: Secondary Status: Acute Prognosis: Fair Aware of Diagnosis: Patient, Family Aware of Prognosis: Patient, Family - Transfer Medications Home Medications: Ascorbate Calcium [Vitamin C] 500 mg PO BID #0 01/10/16 [History] Docusate [Colace] 100 mg PO DAILY PRN #0 01/10/16 [History] Doxepin HCl 100 mg PO HS #0 01/10/16 [History] Multivit-Min/FA/Lycopen/Lutein [Adults 50+ Multivitamin Tablet] 1 tab PO DAILY #0 01/10/16 [History] Potassium Chloride [K-Tab ER] 10 meq PO DAILY #0 01/10/16 [History] Nitroglycerin [Nitrostat] 0.4 mg SL Q5M PRN 05/16/16 [History] Apixaban [Eliquis] 2.5 mg PO BID #90 tablet 05/19/16 [Rx] Loratadine [Allergy Relief] 10 mg PO DAILY 08/03/17 [History] [place]-3/Dha/Epa/Fish Oil [Fish Oil 1,000 mg Softgel] 1,000 mg PO DAILY 08/03/17 [History] Ferrous Sulfate [Iron] 325 mg PO BID 02/06/18 [History] Levothyroxine Sodium 150 mcg PO QAM 10/19/18 [History] Rosuvastatin Calcium [Crestor] 20 mg PO QPM 10/19/18 [History] Baclofen [Lioresal] 10 mg PO TID PRN 01/15/19 [History] Metoprolol Succinate [Toprol Xl] 50 mg PO DAILY 01/15/19 [History] Pantoprazole Sodium 40 mg PO BID 01/15/19 [History] Isosorbide MONOnitrate [Isosorbide Mononitrate ER] 120 mg PO DAILY 02/02/19 [History] Lactulose 15 ml PO TID 02/02/19 [History] glipiZIDE [Glipizide] 5 mg PO BID #0 02/07/19 [Rx] Furosemide [Lasix] 40 mg PO DAILY 03/09/19 [History] Gabapentin [Neurontin] 100 mg PO DAILY@18 03/09/19 [History] Insulin Glargine [Lantus] 25 unit SQ HS 03/09/19 [History] Insulin Glargine [Lantus] 66 unit SQ QAM 03/09/19 [History] Promethazine/Dextromethorphan [Promethazine-Dm Syrup] 10 ml PO Q6H PRN 03/09/19 [History] Clopidogrel [Plavix] 75 mg PO DAILY #30 tablet 03/12/19 [Rx] Ramipril [Altace] 5 mg PO DAILY #1 capsule 03/12/19 [Rx] Allergies/Adverse Reactions: Allergy/AdvReac Type Severity Reaction Status Date / Time tamsulosin Allergy Rash Verified 12/06/18 14:24 Penicillins AdvReac Mild Anaphylaxis Verified 12/06/18 14:24 - Respiratory Orders Smoking Cessation: Smoking cessation has been advised. For more information, call the [place] Tobacco Quit Line at 3-976-XZVK-NOW. - Advance Directives Code Status: Full Code - Mobility Orders Other (Walker ambulation with assistance) - Rehabiliation Orders Rehab Potential: Fair Rehab Orders: Evaluation for Physical Therapy, Evaluation for Occupational Therapy - Diet Orders Mechanical Soft (Advance soft diet with thin liquids. No straws.) CERTIFICATION: I certify that the transfer of the above named patient to an Extended Care Facility is necessary for the continuing treatment of the diagnosis listed. The above information is true and accurate reflection of patient's current condition. Confidential - Redisclosure prohibited without a patient's written consent.
== END 2019-03-21 11:37 | disposition other institution (70) | DRG 57 ==
LOC: INPPIK 17:22
PROVIDERS: ADMIT Internal Medicine; ATTEND Internal Medicine